=== PATIENT | female | born 2000 | race Caucasian/White ===

== ENCOUNTER 2019-05-11 21:13 | Emergency (ER) | payer BC, OTHER ==
[~2019-05-11] VITALS: Ht 162.6 cm; Wt 67.3 kg
[2019-05-11] MEDS ORDERED: ondansetron 4mg rapidly disintigrating tab PO ONE (22:05)
[2019-05-11] MEDS ORDERED: morphine 4 MG/ML inj SYRINge IM ONE (22:05)
--- NOTE | 2019-05-11 22:05 | NUR ---
HUSAM Sanderson, at bedside. Pt reports severe 10 out of 10 pain to the left wrist. Reports it happened 1 hr ago while playing soccer and blocking a ball. Pt has hx of 2 other breaks to this arm, no the wrist area. Mom and Dad at bedside.
[2019-05-11] MEDS ORDERED: LIDOcaine 1% W/epiNEPHrine 1:100,000 20ml vial IJ ONE (22:20)
[2019-05-11] MEDS ORDERED: HYDROcodone/acetaminophen 5mg/325mg tablet PO ONE (22:20)
[2019-05-11] MEDS ORDERED: fentaNYL/PF 50MCG/1 ML 2ML syringe IM ONE (23:00)
--- NOTE | 2019-05-11 23:02 | NUR ---
PT WITH MINIMAL RELIEF FROM THE NORCO ( GIVEN 15 MIN AGO) AND MS 4 MG IM (GIVEN 45 MIN AGO). DR. MURDOCK AND HERNAN LESLIE[facility] PAR[facility] REMAINS AT [facility].
[2019-05-11 23:17] VITALS: BP 136/80
--- NOTE | 2019-05-11 23:18 | NUR ---
given fentanyl 75 mcg im and the wrist reduced and sugar tong splint in process of being placed now. parents remains at bedside. pt reports she does not feel any pain.
[2019-05-11] MEDS ORDERED: HYDR-4353 PO (23:24)
[2019-05-11] MEDS ORDERED: IBUP-1984 PO (23:44)
== END 2019-05-11 23:59 | disposition home or self-care (01) ==
LOC: ER 21:14
DX: S52.502A Unspecified fracture of the lower end of left radius, initial encounter for closed fracture (principal); W21.02XA Struck by soccer ball, initial encounter; Y93.66 Activity, soccer; Y92.89 Other specified places as the place of occurrence of the external cause; Y99.9 Unspecified external cause status
CPT/HCPCS: 25605; 73090; 96372; 99284; J2270; J3010

== ENCOUNTER 2019-05-25 12:04 | Outpatient (CLI) | payer BC, OTHER ==
[~2019-05-25 12:04] MED LIST: IBUP-1984 PO
== END 2019-05-25 14:00 | disposition home or self-care (01) ==
LOC: ORTHO 12:04
PROVIDERS: ATTEND Orthopaedic Surgery
DX: S52.592D Other fractures of lower end of left radius, subsequent encounter for closed fracture with routine healing (principal); S52.612D Displaced fracture of left ulna styloid process, subsequent encounter for closed fracture with routine healing; X58.XXXD Exposure to other specified factors, subsequent encounter
CPT/HCPCS: 73110

== ENCOUNTER 2019-06-20 15:03 | Outpatient (CLI) | payer BC, OTHER | END 2019-06-20 17:00 | disposition home or self-care (01) | LOC: ORTHO 15:03 | PROVIDERS: ATTEND Orthopaedic Surgery | DX: S52.615D Nondisplaced fracture of left ulna styloid process, subsequent encounter for closed fracture with routine healing (principal) | CPT/HCPCS: 73110; G0463 ==

== ENCOUNTER 2019-08-01 15:39 | Outpatient (CLI) | payer BC, OTHER | END 2019-08-01 16:45 | disposition home or self-care (01) | LOC: ORTHO 15:39 | PROVIDERS: ATTEND Orthopaedic Surgery | DX: S52.612D Displaced fracture of left ulna styloid process, subsequent encounter for closed fracture with routine healing (principal); X58.XXXD Exposure to other specified factors, subsequent encounter | CPT/HCPCS: 73110; G0463 ==